=== PATIENT | female | born 1990 | race Caucasian/White ===

== ENCOUNTER 2022-07-27 09:51 | Emergency (ER) | payer OTHER ==
[~2022-07-27] VITALS: Ht 187.9 cm; Wt 102.7 kg
--- NOTE | 2022-07-27 10:10 | ED Chest Pain ---
General Chief Complaint: Cardiac/General Problems Stated Complaint: ELEV BP Source: patient, other ([facility] care nurse) Exam Limitations: no limitations History of Present Illness Date Seen by Provider: Jul 27, 2022 Time Seen by Provider: 09:52 Initial Comments 31-year-old female with no pertinent past medical history coming in due to c oncerns for elevated blood pressure and chest discomfort. She feels like she knows when her blood pressure is high because she can hear her ears ringing slightly. She noticed this first yesterday around noon. She has a wrist cuff at home and took her blood pressure and its been as high as the 160s. Had some chest discomfort during that time that was pretty constant yesterday. Today it is more just to the left shoulder throbbing that is constant. It is very mild, nothing seems to really make it better or worse. Has never had symptoms like this before. She believes that she has had normal blood pressure in the past. Does not take any medicine for blood pressure. Denies any history of DVT or PE, no lower extremity swelling or pain, no hemoptysis, no recent surgery, does not take any hormones, and otherwise denies any shortness of breath, abdominal pain, nausea, vomiting, diarrhea, fever, chills, weakness, numbness, or any other concerns. LMP was a couple weeks ago and she had a negative test today ago. Allergies and Home Medications Allergies Coded Allergies: No Known Drug Allergies (Unverified , 07/27/22) Patient Home Medication List Home Medication List Reviewed: Yes Review of Systems Review of Systems Constitutional: No fever EENTM: No Blurred Vision Respiratory: Denies Cough, Denies Shortness of Air Cardiovascular: Chest Pain Gastrointestinal: Denies Abdominal Pain Genitourinary: No Symptoms Reported Musculoskeletal: see HPI Skin: no symptoms reported Psychiatric/Neurological: No Symptoms Reported Endocrine: No Symptoms Reported Hematologic/Lymphatic: No Symptoms Reported All Other Systems Reviewed Negative Unless Noted: Yes Past Ptncuye-Qqjhrq-Pprecb Hx Patient Social History Tobacco Use?: No Past Medical History Surgeries: Yes (D&C) Physical Exam Vital Signs Vital Signs - First Documented 07/27/22 09:55 Temp 36.4 Pulse 88 Resp 16 B/P (MAP) 137/95 (109) Pulse Ox 100 O2 Delivery Room Air Capillary Refill : Height, Weight, BMI Height: '" Weight: lbs. oz. kg; BMI Method: General Appearance: No Apparent Distress, WD/WN HEENT: PERRL/EOMI, Normal ENT Inspection, Pharynx Normal Neck: Full Range of Motion, Normal Inspection, Non Tender, Supple Respiratory: Chest Non Tender, Lungs Clear, Normal Breath Sounds, No Accessory Muscle Use, No Respiratory Distress Cardiovascular: Regular Rate, Rhythm, No Edema, Normal Peripheral Pulses Gastrointestinal: Normal Bowel Sounds, Non Tender, Soft; No Distended, No Guarding Extremity: Normal Capillary Refill, Normal Inspection, Normal Range of Motion, Non Tender, No Calf Tenderness, No Pedal Edema Neurologic/Psychiatric: Alert, No Motor/Sensory Deficits, Normal Mood/Affect Skin: Normal Color, Warm/Dry Lymphatic: No Adenopathy Progress/Results/Core Measures Results/Orders Lab Results Laboratory Tests Test 07/27/22 10:10 Range/Units White Blood Count 7.2 4.3-11.0 10^3/uL Red Blood Count 4.77 3.80-5.11 10^6/uL Hemoglobin 13.9 11.5-16.0 g/dL Hematocrit 41 35-52 % Mean Corpuscular Volume 86 80-99 fL Mean Corpuscular Hemoglobin 29 25-34 pg Mean Corpuscular Hemoglobin Concent 34 32-36 g/dL Red Cell Distribution Width 12.8 10.0-14.5 % Platelet Count 234 130-400 10^3/uL Mean Platelet Volume 9.8 9.0-12.2 fL Immature Granulocyte % (Auto) 0 % Neutrophils (%) (Auto) 61 42-75 % Lymphocytes (%) (Auto) 30 12-44 % Monocytes (%) (Auto) 7 0-12 % Eosinophils (%) (Auto) 2 0-10 % Basophils (%) (Auto) 1 0-10 % Neutrophils # (Auto) 4.4 1.8-7.8 10^3/uL Lymphocytes # (Auto) 2.1 1.0-4.0 10^3/uL Monocytes # (Auto) 0.5 0.0-1.0 10^3/uL Eosinophils # (Auto) 0.2 0.0-0.3 10^3/uL Basophils # (Auto) 0.1 0.0-0.1 10^3/uL Immature Granulocyte # (Auto) 0.0 0.0-0.1 10^3/uL Sodium Level 138 135-145 MMOL/L Potassium Level 4.1 3.6-5.0 MMOL/L Chloride Level 101 98-107 MMOL/L Carbon Dioxide Level 26 21-32 MMOL/L Anion Gap 11 5-14 MMOL/L Blood Urea Nitrogen 9 7-18 MG/DL Creatinine 0.78 0.60-1.30 MG/DL Estimat Glomerular Filtration Rate 105 BUN/Creatinine Ratio 12 Glucose Level 98 70-105 MG/DL Calcium Level 9.2 8.5-10.1 MG/DL Corrected Calcium 8.5-10.1 MG/DL Magnesium Level 1.9 1.6-2.4 MG/DL Total Bilirubin 0.2 0.1-1.0 MG/DL Aspartate Amino Transf (AST/SGOT) 18 5-34 U/L Alanine Aminotransferase (ALT/SGPT) 26 0-55 U/L Alkaline Phosphatase 64 40-136 U/L Troponin I < 0.30 <0.30 NG/ML Total Protein 7.7 6.4-8.2 GM/DL Albumin 4.6 H 3.2-4.5 GM/DL My Orders Orders - TIANNA RIZZO MD Cbc With Automated Diff (07/27/22 10:06) Magnesium (07/27/22 10:06) Chest 1 View Ap/Pa Only (07/27/22 10:06) Ekg Tracing (07/27/22 10:06) Comprehensive Metabolic Panel (07/27/22 10:06) O2 (07/27/22 10:06) Monitor-Rhythm Ecg Trace Only (07/27/22 10:06) Ed Iv/Invasive Line Start (07/27/22 10:06) Troponin I Fs (07/27/22 10:06) Vital Signs/I&O 07/27/22 09:55 Temp 36.4 Pulse 88 Resp 16 B/P (MAP) 137/95 (109) Pulse Ox 100 O2 Delivery Room Air Progress Progress Note : Progress Note 31-year-old female with above history coming in due to elevated blood pressure and chest discomfort yesterday. ABCs were intact and vitals were stable on p resentation. Physical exam reassuring with no acute abnormalities. EKG with no acute ischemic changes. Chest x-ray my interpretation with no pneumonia, no obvious pneumothorax, normal cardiac silhouette. An IV was placed and basic labs were obtained including troponin which was negative. I will suggest the patient start taking ambulatory blood pressure measurements at home more regularly with a cuff that goes around her upper arm and fits properly. If her pressures remain elevated I will have her referred to her PCP for blood pressure medicines. Initial ECG Impression Date: Jul 27, 2022 Initial ECG Impression Time: 10:00 Initial ECG Rate: 73 Initial ECG Rhythm: Normal Sinus Comment Narrow QRS, normal axis, no significant ST changes or T wave abnormalities Diagnostic Imaging Diagonstic Imaging: Xray Plain Films/CT/US/NM/MRI: chest Comments On my interpretation no obvious pneumonia, pneumothorax, normal cardiac silhouette NAME: KENNETH OLMEDO [facility] REC#: [id number] PT STATUS: REG ER : 1990 PHYSICIAN: TIANNA RIZZO MD ADMIT DATE: 07/27/22/ER FS Signed Date of Exam:07/27/22 CHEST 1 VIEW AP/PA ONLY CHEST 1 VIEW AP/PA ONLY Indication: Chest pain. Comparison: None available. Findings: No focal airspace disease in the visualized lungs. Please note that the posterior lower lobes are poorly evaluated by portable radiography. No pleural effusion or pneumothorax. Normal cardiomediastinal silhouette. Impression: 1. No acute cardiopulmonary process by portable radiography. Dictated by: Dictated on workstation # [id number] Dict: 07/27/22 1039 Trans: 07/27/22 1039 [facility] [id number] Interpreted by: ANNIE MIRZA MD Electronically signed by: ANNIE MIRZA MD 07/27/22 1039 Departure Impression Primary Impression: Hypertension Qualified Codes: I10 - Essential (primary) hypertension Additional Impression: Chest pain Qualified Codes: R07.82 - Intercostal pain Disposition: 01 HOME, SELF-CARE Condition: Stable Departure-Patient Inst. Decision time for Depature: 10:43 Referrals: NO,LOCAL PHYSICIAN (PCP/Family) Primary Care Physician Patient Instructions: Chest Pain That Is Not Caused by the Heart (DC) Add. Discharge Instructions: I recommend buying a blood pressure cuff that fits around her upper arm nicely. Take your blood pressure 1-2 times a day and write it down in a book. After couple weeks of data if your blood pressure consistently is in the 140s on the top number or 90s or above on the bottom number then I would follow-up with your primary doctor to discuss being on blood pressure medicines. If her blood pressure is anywhere around 200/100 and you are having crushing severe chest pain or severe shortness of breath or you cannot catch her breath at all then I would want you to come back to the ER. TIANNA RIZZO MD Jul 27, 2022 10:10
[2022-07-27 10:15] LABS: BASOPHILS # (AUTO) 0.1 10^3/uL (0.0-0.1); BASOPHILS % (AUTO) 1 % (0-10); EOSINOPHILS # (AUTO) 0.2 10^3/uL (0.0-0.3); EOSINOPHILS % (AUTO) 2 % (0-10); HEMATOCRIT 41 % (35-52); HEMOGLOBIN 13.9 g/dL (11.5-16.0); LYMPHOCYTES # (AUTO) 2.1 10^3/uL (1.0-4.0); LYMPHOCYTES % (AUTO) 30 % (12-44); MEAN CORPUSCULAR HEMOGLOBIN 29 pg (25-34); MEAN CORPUSCULAR HGB CONC 34 g/dL (32-36); MEAN CORPUSCULAR VOLUME 86 fL (80-99); MEAN PLATELET VOLUME 9.8 fL (9.0-12.2); MONOCYTES # (AUTO) 0.5 10^3/uL (0.0-1.0); MONOCYTES % (AUTO) 7 % (0-12); NEUTROPHILS # (AUTO) 4.4 10^3/uL (1.8-7.8); NEUTROPHILS % (AUTO) 61 % (42-75); PLATELET COUNT 234 10^3/uL (130-400); WHITE BLOOD COUNT 7.2 10^3/uL (4.3-11.0)
[2022-07-27 10:35] LABS: ALANINE AMINOTRANSFERASE 26 U/L (0-55); ALBUMIN 4.6 GM/DL (3.2-4.5); ALKALINE PHOSPHATASE 64 U/L (40-136); BILIRUBIN,TOTAL 0.2 MG/DL (0.1-1.0); BUN/CREATININE RATIO 12; CALCIUM 9.2 MG/DL (8.5-10.1); CARBON DIOXIDE 26 MMOL/L (21-32); CHLORIDE 101 MMOL/L (98-107); CREATININE SERUM 0.78 MG/DL (0.60-1.30); GFR ESTIMATED 105; GLUCOSE 98 MG/DL (70-105); MAGNESIUM 1.9 MG/DL (1.6-2.4); POTASSIUM 4.1 MMOL/L (3.6-5.0); SODIUM 138 MMOL/L (135-145); TOTAL PROTEIN 7.7 GM/DL (6.4-8.2)
--- NOTE | 2022-07-27 10:41 | Diagnostic Imaging Report ---
CHEST 1 VIEW AP/PA ONLY Indication: Chest pain. Comparison: None available. Findings: No focal airspace disease in the visualized lungs. Please note that the posterior lower lobes are poorly evaluated by portable radiography. No pleural effusion or pneumothorax. Normal cardiomediastinal silhouette. Impression: 1. No acute cardiopulmonary process by portable radiography. Dictated by: Dictated on workstation # [id number]
[2022-07-27 10:48] VITALS: BP 142/84
== END 2022-07-27 10:46 | disposition home or self-care (01) ==
LOC: ER FS 09:53
DX: I10 Essential (primary) hypertension (principal)
CPT/HCPCS: 36415; 71045; 80053; 83735; 84484; 85025

== ENCOUNTER → 2022-11-01 | Outpatient (CLI) | payer OTHER ==
--- NOTE | 2022-11-01 15:19 | Diagnostic Imaging Report ---
INDICATION: Left knee pain. FINDINGS: 3 views. There is moderate narrowing of the medial compartment. Articulating surfaces are smooth. Patellofemoral joint is in good alignment. There are no hypertrophic changes. No loose bodies. IMPRESSION: Moderate narrowing of the medial compartment. Dictated by: Dictated on workstation # [id number]
== END ==
LOC: RAD FS 14:56
PROVIDERS: ATTEND Nurse Practitioner Family
DX: M25.862 Other specified joint disorders, left knee (principal)
CPT/HCPCS: 73562